=== PATIENT | female | born 1950 | race Caucasian/White ===

== ENCOUNTER 2017-06-08 15:16 | Outpatient (CLI) | payer OTHER | END 2017-06-08 17:00 | disposition home or self-care (01) | LOC: SONOGRAMA 15:16 | DX: I10 Essential (primary) hypertension (principal); I15.0 Renovascular hypertension; I11.9 Hypertensive heart disease without heart failure ==

== ENCOUNTER 2017-06-08 15:37 | Outpatient (CLI) | payer OTHER | END 2017-06-08 17:00 | disposition home or self-care (01) | LOC: RAD 15:37 | DX: I10 Essential (primary) hypertension (principal) ==

== ENCOUNTER 2018-02-09 14:27 | Outpatient (CLI) | payer OTHER | END 2018-02-09 16:00 | disposition home or self-care (01) | LOC: MAMO-SONO 14:27 | DX: Z12.31 Encounter for screening mammogram for malignant neoplasm of breast (principal); Z87.898 Personal history of other specified conditions ==

== ENCOUNTER 2018-04-28 08:58 | Outpatient (CLI) | payer OTHER | END 2018-04-28 09:05 | disposition home or self-care (01) | LOC: RAD 08:58 | DX: J80 Acute respiratory distress syndrome (principal) ==

== ENCOUNTER 2019-06-04 08:25 | Outpatient (CLI) | payer OTHER | END 2019-06-04 08:28 | disposition home or self-care (01) | LOC: RAD 08:25 | DX: M54.2 Cervicalgia (principal) ==

== ENCOUNTER 2019-08-29 14:18 | Outpatient (CLI) | payer OTHER | END 2019-08-29 14:24 | disposition home or self-care (01) | LOC: RAD 14:18 | DX: M54.5 Low back pain (principal); M54.31 Sciatica, right side ==

== ENCOUNTER 2019-11-07 14:41 | Outpatient (CLI) | payer OTHER | END 2019-11-07 14:46 | disposition home or self-care (01) | LOC: RAD 14:41 | PROVIDERS: ATTEND Physical Medicine & Rehabilitation Hospice and Palliative Medicine | DX: M25.561 Pain in right knee (principal); M79.662 Pain in left lower leg ==

== ENCOUNTER 2020-03-12 13:48 | Outpatient (CLI) | payer OTHER | END 2020-03-12 13:55 | disposition home or self-care (01) | LOC: NUCLEAR 13:48 | DX: M85.89 Other specified disorders of bone density and structure, multiple sites (principal) ==

== ENCOUNTER 2023-05-07 08:33 | Outpatient (CLI) | payer OTHER | END 2023-05-07 08:46 | disposition home or self-care (01) | LOC: MRI 08:33 | PROVIDERS: ATTEND General Practice | DX: M25.561 Pain in right knee (principal) | CPT/HCPCS: 73721 ==

== ENCOUNTER 2023-09-30 07:34 | Outpatient (CLI) | payer OTHER | END 2023-09-30 07:47 | disposition home or self-care (01) | LOC: MAMO-SONO 07:34 | PROVIDERS: ATTEND General Practice | DX: N64.4 Mastodynia (principal); Z12.31 Encounter for screening mammogram for malignant neoplasm of breast ==

== ENCOUNTER 2023-12-10 07:59 | Outpatient (CLI) | payer OTHER | END 2023-12-10 08:06 | disposition home or self-care (01) | LOC: RAD 07:59 | PROVIDERS: ATTEND General Practice | DX: M25.561 Pain in right knee (principal) ==

== ENCOUNTER 2024-06-24 12:53 | Outpatient (CLI) | payer OTHER | END 2024-06-24 12:55 | disposition home or self-care (01) | LOC: NUCLEAR 12:53 | PROVIDERS: ATTEND General Practice | DX: M81.0 Age-related osteoporosis without current pathological fracture (principal) ==

== ENCOUNTER 2024-10-26 08:01 | Outpatient (CLI) | payer OTHER | END 2024-10-26 08:12 | disposition home or self-care (01) | LOC: SONOGRAMA 08:01 | PROVIDERS: ATTEND Internal Medicine Gastroenterology | DX: R10.13 Epigastric pain (principal) ==